=== PATIENT | female | born 1955 | race Caucasian/White ===

== ENCOUNTER 2020-09-17 22:57 | Emergency (ER) | payer MEDICARE, OTHER, SELFPAY ==
[2020-09-17 23:01] VITALS: BP 156/87; PULSE 72; RESP 16; TEMP 36.2; O2SAT 99
--- NOTE | 2020-09-18 01:50 | PC.NURSE ---
pt reports was reaching into a drawer and cut right pinkie finger on steak knife accidentally. pt has vertical lac approx. 1 cm with well-approximated edges to distal pad of right pinkie finger. bleeding controlled.
--- NOTE | 2020-09-18 01:52 | ED.WOUNDLAC ---
HPI - Wound/Laceration General Chief Complaint: Wound/Laceration Stated Complaint: laceration to finger Time Seen by Provider: 09/18/20 01:05 History of Present Illness HPI narrative: 65 yo female presents to the ED for a laceration. She sustained a laceration to the right little finger. This happened when she was reaching into a drawer and accidentally grabbed to blade instead of the handle. Minimal pain. Related Data Home Medications Medication Instructions Recorded Confirmed azelastine 1 spray INTRANASAL HS 09/17/20 calcium carbonate-vitamin D3 tablet PO 09/17/20 [Calcium with Vitamin D] fexofenadine 180 mg PO DAILY 09/17/20 fluticasone propionate [Flonase] INTRANASAL 09/17/20 hydrochlorothiazide 09/17/20 losartan 09/17/20 [id number] acid-lutein [Adult tablet PO 09/17/20 Multivitamin (w-lutein)] potassium citrate meq PO 09/17/20 Allergies Allergy/AdvReac Type Severity Reaction Status Date / Time No Known Allergies Allergy Unknown Unverified 01/16/14 13:00 Review of Systems Review of Systems: All systems reviewed & are unremarkable except as noted in HPI and below PMFSH Past Medical History Medical History HTN (hypertension) Family History Family History Father Hypertension Grandparent Hypertension Social History Social History Smoking status: Former smoker Smoking end date: 02/12/90 Alcohol intake: never Exam Const: General: no acute distress and alert Orientation/consciousness: patient oriented x3 HENMT: Head: normal to inspection Resp: Effort & Inspection: normal respiratory effort Auscultation: clear to auscultation bilaterally Cardio: Rate: regular rate Rhythm: regular rhythm Skin: Wounds: wounds noted (1 cm laceration to distal right little finger) Neuro: Other: distal motor and sensory intact Extrem: General: normal to inspection Course Vital Signs Vital signs: Vital Signs Temperature 36.2 C L 09/17/20 23:01 Pulse Rate 72 09/17/20 23:01 Respiratory Rate 16 09/17/20 23:01 Blood Pressure 156/87 H 09/17/20 23:01 Pulse Oximetry 99 09/17/20 23:01 Temperature 36.2 C L 09/17/20 23:01 Pulse Rate 72 09/17/20 23:01 Respiratory Rate 16 09/17/20 23:01 Blood Pressure 156/87 H 09/17/20 23:01 Pulse Oximetry 99 09/17/20 23:01 Procedures Laceration Laceration 1: Site: hand Side (If applicable): right Size (cm): 1 Description: linear Depth: simple, single layer Local Anesthetic: lidocaine 1% Amount of anesthesia used (mL): 1 Pre-repair: wound explored and irrigated ====== Skin Level ====== Skin layer closed with: nylon Size (cm): 5-0 Number of sutures: 3 Technique: simple, interrupted ====== Subcutaneous Layer ====== ====== Muscle Layer ====== ====== Tendon Layer ====== Discharge Plan Discharge Clinical Impression: Finger laceration Patient Disposition: Home, Self-Care Condition: Stable Instructions: Laceration (ED) Additional Instructions: Follow up for removal of your stitches in 10-14 days Prescriptions: No Action hydrochlorothiazide 50 mg tablet RF: 0 fexofenadine 180 mg Tablet 180 mg PO DAILY RF: 0 potassium citrate 10 mEq (1,080 mg) tablet extended release PO RF: 0 losartan 100 mg tablet RF: 0 fluticasone propionate [Flonase] 50 mcg/actuation [place],Suspension INTRANASAL RF: 0 calcium carbonate-vitamin D3 [Calcium with Vitamin D] 600 mg(1,500mg) -400 unit Tablet PO RF: 0 azelastine 205.5 mcg (0.15 %) [place],Non-Aerosol 1 spray INTRANASAL HS RF: 0 [id number] acid-lutein [Adult Multivitamin (w-lutein)] 200-137.5 mcg Tablet,Chewable PO RF: 0 Follow-up/Referrals
[2020-09-18] MEDS: TETANUS,DIPHTHERIA,AC PERTUSSIS ADULT (0.5 ML) BOOSTRIX IM (01:59)
== END 2020-09-18 02:13 | disposition home or self-care (01) ==
PROVIDERS: Emergency Provider Emergency Medicine
DX: S61.216A Laceration without foreign body of right little finger without damage to nail, initial encounter (principal); I10 Essential (primary) hypertension; Z87.891 Personal history of nicotine dependence; W26.0XXA Contact with knife, initial encounter
CPT/HCPCS: 12001; 90471; 90715; 96372; 99283

== ENCOUNTER 2023-05-30 11:02 | Emergency (ER) | payer MEDICARE, OTHER, SELFPAY ==
[2023-05-30 11:19] VITALS: BP 115/78; PULSE 93; RESP 16; TEMP 36.6; O2SAT 100
[2023-05-30 11:22] VITALS: BP 115/78; PULSE 93; RESP 16; TEMP 36.6; O2SAT 100
--- NOTE | 2023-05-30 11:36 | ED.EXTPRO ---
HPI - Extremity Problem General Chief complaint: Extremity Problem,Nontraumatic Stated complaint: R FOOT PAIN/SWELLING Time Seen by Provider: 05/30/23 11:37 Source: patient Mode of arrival: ambulatory Limitations: no limitations History of Present Illness HPI Narrative: 67-year-old female presents with complaint of pain to right foot for approximately 3-4 months. States has been painful since around [place] time. Reports that pain is usually to dorsal aspect 1st thing in the mornings. Is swollen, swelling worse in the evening. Sometimes has soreness, pain to entire right foot and up into right ankle. Patient has not seen her primary care physician for this issue. States to her to get appointment. Patient ambulatory with steady gait, no limp. All systems reviewed and negative except as noted above. Related Data Home Medications Medication Instructions Recorded Confirmed azelastine 205.5 mcg (0.15 %) 1 spray intranasal HS 09/17/20 05/30/23 nasal spray calcium carbonate 600 mg-vitamin 1 tablet PO DAILY 09/17/20 05/30/23 D3 10 mcg (400 unit) tablet (Calcium with Vitamin D) fexofenadine 180 mg tablet 180 mg PO DAILY 09/17/20 05/30/23 fluticasone propionate 50 50 mcg intranasal DAILY 09/17/20 05/30/23 mcg/actuation nasal spray,suspension hydrochlorothiazide 50 mg tablet 50 mg PO DAILY 09/17/20 05/30/23 losartan 100 mg tablet 100 mg PO DAILY 09/17/20 05/30/23 multivit with min-folic 1 tablet PO DAILY 09/17/20 05/30/23 acid-lutein 200 mcg-137.5 mcg chewable tablet (Adult Multivitamin (w-lutein)) potassium citrate 10 mEq (1,080 10 meq PO DAILY 09/17/20 05/30/23 mg) tablet,extended release alendronate 70 mg tablet 70 mg PO DAILY 05/30/23 05/30/23 aspirin 81 mg tablet mg PO 05/30/23 atorvastatin 20 mg tablet 20 mg PO DAILY 05/30/23 05/30/23 zolpidem 5 mg tablet 5 mg PO HS PRN Sleep 05/30/23 05/30/23 Allergies Allergy/AdvReac Type Severity Reaction Status Date / Time No Known Allergies Allergy Unknown Unverified 05/30/23 11:14 Review of Systems Review of Systems: CONSTITUTIONAL: Denies fever, chills, or sweats. EYES: Denies visual changes, redness, or discharge. ENT: Denies rhinorrhea, congestion, sore throat, or otalgia. CARDIOVASCULAR: Denies chest pain, palpitations, or edema. RESPIRATORY: Denies cough or dyspnea. GASTROINTESTINAL: Denies abdominal pain, nausea, vomiting, or diarrhea. GENITOURINARY: Denies dysuria or hematuria. SKIN: Denies rash or itching. MUSCULOSKELETAL: Denies back pain. Reports pain and swelling to right foot. NEUROLOGIC: Denies headache, numbness, or weakness. PSYCHIATRIC: Denies anxiety or depression. All other systems reviewed are negative, except as documented in HPI. [facility] Past Medical History Medical History HTN (hypertension) Family History Family History Father Hypertension Grandparent Hypertension Social History Social History Smoking status: Former smoker Smoking end date: 02/12/90 Alcohol intake: never Comments At time of signature, agree with nursing past medical, surgical, social and family history. There is no relevant family history pertinent to the presenting complaint. Exam Narrative: GENERAL: This is a well-nourished, well-developed patient, in no apparent distress. HEAD: normocephalic, atraumatic. EYES: PERRL. Sclera clear/white. Vision is grossly intact. EARS: External ears normal NOSE: External nose normal NECK: Neck supple, non-tender without lymphadenopathy, masses or thyromegaly. CARDIOVASCULAR: Regular rate and rhythm without murmurs, gallops, or rubs. RESPIRATORY: Clear to auscultation. Breath sounds equal bilaterally. No wheezes, rales, or rhonchi. SKIN: warm, Dry, intact with no suspicious lesions or rash, good texture and turgor. NEURO:
== END 2023-05-30 12:04 | disposition home or self-care (01) ==
PROVIDERS: Emergency Provider Nurse Practitioner Family; PCP Internal Medicine Infectious Disease
DX: M79.671 Pain in right foot (principal); Z87.891 Personal history of nicotine dependence; I10 Essential (primary) hypertension
CPT/HCPCS: 73630; 99213; G0463